=== PATIENT | male | born 1965 | race Two or more races ===

== ENCOUNTER 2020-02-02 14:31 | Outpatient (CLI) | payer OTHER | END 2020-02-02 14:44 | disposition home or self-care (01) | LOC: LAB 14:31 | PROVIDERS: ATTEND Urology | DX: R97.20 Elevated prostate specific antigen [PSA] (principal) ==

== ENCOUNTER 2020-02-24 07:10 | Outpatient (CLI) | payer OTHER | END 2020-02-24 07:21 | disposition home or self-care (01) | LOC: SONOGRAMA 07:10 | PROVIDERS: ATTEND Urology | DX: C61 Malignant neoplasm of prostate (principal); D29.1 Benign neoplasm of prostate; R97.20 Elevated prostate specific antigen [PSA] ==

== ENCOUNTER → 2020-03-08 07:56 | Outpatient (CLI) | payer OTHER | END | disposition home or self-care (01) | LOC: LAB 07:56 | PROVIDERS: ATTEND Radiology Diagnostic Radiology | DX: N20.0 Calculus of kidney (principal) ==

== ENCOUNTER 2020-03-13 07:13 | Outpatient (CLI) | payer OTHER | END 2020-03-13 07:15 | disposition home or self-care (01) | LOC: TOM 07:13 | PROVIDERS: ATTEND Urology | DX: K40.90 Unilateral inguinal hernia, without obstruction or gangrene, not specified as recurrent (principal); C61 Malignant neoplasm of prostate ==

== ENCOUNTER 2020-03-29 08:08 | Outpatient (CLI) | payer OTHER | END 2020-03-29 08:29 | disposition home or self-care (01) | LOC: NUCLEAR 08:08 | PROVIDERS: ATTEND Urology | DX: C61 Malignant neoplasm of prostate (principal); R97.20 Elevated prostate specific antigen [PSA] | CPT/HCPCS: 78803; A9503 ==